=== PATIENT | male | born 1970 | race Caucasian/White ===

== ENCOUNTER 2021-03-04 12:05 | Day surgery (SDC) | payer MEDICAID ==
[2021-03-02 09:18] LABS: BASOPHILS % (AUTO) 0.7 % (0.0-2.0); COVID AG,FIA SOURCE NASOPHARYNGEAL; EOSINOPHILS % (AUTO) 2.7 % (1.0-6.0); HEMATOCRIT 46.9 % (41-53); HEMOGLOBIN 15.4 g/dL (13.5-17.5); LYMPHOCYTES # (AUTO) 2.3 K/uL (1.0-4.8); LYMPHOCYTES % (AUTO) 30.1 % (22.0-44.0); MEAN CORPUSCULAR HEMOGLOBIN 28.5 pg (26.0-34.0); MEAN CORPUSCULAR HGB CONC 32.8 G/dL (31.0-37.0); MEAN CORPUSCULAR VOLUME 87 fL (80-100); MONOCYTES # (AUTO) 0.6 K/uL (0.1-1.0); NEUTROPHILS # (AUTO) 4.4 K/uL (1.8-7.7); NEUTROPHILS % (AUTO) 58.5 % (40.0-70.0); PLATELET COUNT (AUTO) 247 K/uL (150-450); RED CELL DISTRIBUTION WIDTH 13.6 % (11.5-14.5)
[2021-03-02 09:28] LABS: ANION GAP 6 mmol/L (8-16); CALCIUM, TOTAL 9.6 mg/dL (8.8-10.5); CARBON DIOXIDE 30 mmol/L (22-29); CHLORIDE 107 mmol/L (98-107); CREATININE 1.09 mg/dL (0.60-1.30); GLOMERULAR FILTR. RATE CALC > 60 mL/min (>60); GLUCOSE,RANDOM 107 mg/dL (70-110); POTASSIUM 4.8 mmol/L (3.5-5.1); SODIUM SERUM 143 mmol/L (136-145); UREA NITROGEN, BLOOD 20 mg/dL (7-18)
[2021-03-02 09:31] LABS: PROTHROMBIN TIME 10.7 SEC (9.4-11.6)
[2021-03-02 09:34] LABS: ALANINE AMINOTRANSFERASE 45 U/L (12-78); ALKALINE PHOSPHATASE 86 U/L (46-116); ASPARTATE AMINOTRANSFERASE 20 U/L (15-37); BILIRUBIN,TOTAL 0.3 mg/dL (0.1-1.0); TOTAL PROTEIN, SERUM 7.9 g/dL (6.4-8.2)
[~2021-03-04] VITALS: Ht 171.4 cm; Wt 94.5 kg
[~2021-03-04 12:05] MED LIST: HEPARIN SODIUM 1000 UNITS/NS 0 ML ONE; IOHEXOL 300 MG/ML 150 ML VIAL ONE; LIDOCAINE/PF 1% 30 ML VIAL ONE; SODIUM BICARBONATE 50 MEQ/50 ML VIAL ONE; SODIUM CHLORIDE 0.9% 0 ML ONE; SODIUM CHLORIDE 0.9% 1,000 ML IV ONE
== END 2021-03-04 12:20 | disposition home or self-care (01) ==
LOC: CATHLAB 12:05
PROVIDERS: ATTEND Internal Medicine Interventional Cardiology
DX: I50.22 Chronic systolic (congestive) heart failure (principal); Z53.8 Procedure and treatment not carried out for other reasons; Z20.822 Contact with and (suspected) exposure to COVID-19
CPT/HCPCS: 36415; 80053; 85025; 85610; 85730; 87426; 93005; C9803; J1644; J3490; J7030; Q9967

== ENCOUNTER 2021-07-23 13:30 | Day surgery (SDC) | payer MEDICAID ==
[~2021-07-23 13:30] MED LIST changes: +ACETYLCYSTEINE 20% 200 MG/ML 4 ML ORAL SOLUTION PO SCH; +ASPIRIN 325 MG TABLET PO SCH; +ATORVASTATIN CALCIUM 40 MG TABLET PO ONE; +CARV25 PO; +DiphenhydrAMINE HCL 50 MG/ML VIAL IVP ONE; -HEPARIN SODIUM 1000 UNITS/NS 0 ML ONE; -IOHEXOL 300 MG/ML 150 ML VIAL ONE; -LIDOCAINE/PF 1% 30 ML VIAL ONE; +LISI-894 PO; -SODIUM BICARBONATE 50 MEQ/50 ML VIAL ONE; -SODIUM CHLORIDE 0.9% 0 ML ONE
== END 2021-07-23 13:31 | disposition home or self-care (01) ==
LOC: CATHLAB 13:30
PROVIDERS: ATTEND Internal Medicine Interventional Cardiology
DX: R94.39 Abnormal result of other cardiovascular function study (principal); Z53.8 Procedure and treatment not carried out for other reasons; I10 Essential (primary) hypertension; I25.2 Old myocardial infarction
CPT/HCPCS: Z7610